=== PATIENT | male | born 1955 | race Caucasian/White ===

== ENCOUNTER 2016-07-11 06:14 | Emergency (ER) | payer OTHER, BC ==
[2016-07-11 06:30] VITALS: BP 148/92
--- NOTE | 2016-07-11 06:46 | EDM.PDOC ---
ED HPI Trauma - General Chief Complaint: Upper Extremity Injury/Pain Stated Complaint: R HAND IN CAST/NUMBNESS Time Seen by Provider: 07/11/16 06:35 - History of Present Illness INITIAL COMMENTS - FREE TEXT/NARRATIVE: 61-year-old male presents emergency room with numbness and tingling in his right hand. Patient's right arm is casted due to a fracture his cast was placed about a week and a half ago Dr. Bradford office. The patient has done okay with this however at times he's noticed intermittent tingling in his thumb index finger and middle finger. This has always resolved on its own. This morning he awoke around 2:00 the significant numbness and tingling in his fingers and he would not get better he presents to the emergency room with this today. A couple weeks ago the patient was involved in a L&I injury he injured his arm and his back. At this time the patient is having worsening back pain. This is mostly on the right side. He's had no loss of bowel or bladder control no numbness or tingling down his legs. Allergies/ADRs: Allergies No Known Allergies Allergy (Verified 07/11/16 06:25) Home Medications: Ambulatory Orders Ibuprofen 800 mg PO TID PRN #60 tablet 05/06/16 [Confirmed 07/11/16] Past Medical History - Past Health History Medical/Surgical History: Denies Medical/Surgical History Musculoskeletal History: Reports: Fracture - Past Surgical History GI Surgical History: Reports: Hernia, inguinal, Hernia repair/other Social & Family History - Family History Family Medical History: Noncontributory - Tobacco Use Smoking Status *Q: Never Smoker - Caffeine Use Caffeine Use: Reports: Coffee - Recreational Drug Use Recreational Drug Use: No Review of Systems - Review of Systems Review Of Systems: See Below Respiratory: Reports: No Symptoms Cardiovascular: Reports: no symptoms GI/Abdominal: Reports: No symptoms Trauma Exam - Physical Exam Exam: See Below Exam Limited By: No limitations General Appearance: Reports: alert, no apparent distress Respiratory Exam: Reports: no respiratory distress, lungs clear, normal breath sounds Cardiovascular: Reports: regular rate, rhythm, no edema, no murmur Back: Reports: full range of motion, other (He has significant tenderness with palpation over the muscles in his right lumbar back this does not involve the paraspinous muscles. He has no bony point tenderness). Denies: vertebral tenderness Extremities: Reports: other (Patient's right arm is in a forearm cast that comes just proximal to the elbow flexed 90. This extends to nearly the metacarpophalangeal joint. The patient has numbness and tingling in the carpal tunnel distribution including the thumb index finger middle finger and radial aspect of the ring finger) Course - Vital Signs Last Recorded V/S: Last Vital Signs Temp 36.1 C 07/11/16 06:26 Pulse 58 L 07/11/16 06:26 Resp 18 07/11/16 06:26 BP 148/92 H 07/11/16 06:26 Pulse Ox 98 07/11/16 06:26 - Re-Assessments/Exams Free Text/Narrative Re-Assessment/Exam: 07/11/16 07:16 Patient's case was discussed with Dr. Bowen grimm who did briefly see the patient here in the emergency department, he advised bivalving the cast. The cast was bivalved gently wrapped in an Cr wrap his arm feels much better at this time he still has some residual numbness in his digits his arm feels a lot better he still has is numbness in the carpal tunnel distribution. The patient needs to follow up with Dr. Suzette grimm for further evaluation of the numbness in his hands and for his back complaints. Departure - Departure Time of Disposition: 07:22 Disposition: Home, Self-Care 01 Clinical Impression: Carpal tunnel syndrome of right wrist Forms: ED Department Discharge Additional Instructions: Return to the emergency room with any questions or problems. Followup with Dr. Bradford this morning today for reassessment of your hand and to discuss your back problems
== END 2016-07-11 07:30 | disposition home or self-care (01) ==
LOC: JD.ED 06:14
DX: G56.01 Carpal tunnel syndrome, right upper limb (principal); Z98.890 Other specified postprocedural states
CPT/HCPCS: 99282; 99283; 99284